=== PATIENT | female | born 1995 | race Caucasian/White ===

== ENCOUNTER 2017-03-23 16:19 | Outpatient (CLI) | payer MEDICAID ==
[~2017-03-23] VITALS: Ht 152.4 cm; Wt 79.1 kg
[2017-03-23 17:08] VITALS: Ht 152.4 cm; Wt 79.1 kg
[2017-03-23 17:09] VITALS: BP 110/69; PULSE 83; RESP 18
[2017-03-23] MEDS ORDERED: PREN-93 PO (17:20)
[2017-03-23 19:01] LABS: ADD SCAN DIFF NO
[2017-03-23 19:03] LABS: ADD UMIC YES; URINE BILIRUBIN (Dip) NEGATIVE (NEGATIVE); URINE BLOOD (Dip) NEGATIVE (NEGATIVE); URINE COLOR LT. YELLOW (YELLOW); URINE GLUCOSE (Dip) NEGATIVE (NEGATIVE); URINE KETONES (Dip) NEGATIVE (NEGATIVE); URINE LEUKOCYTE ESTERASE (Dip) TRACE (NEGATIVE); URINE NITRITE (Dip) NEGATIVE (NEGATIVE); URINE TOTAL PROTEIN (Dip) NEGATIVE (NEGATIVE); URINE UROBILINOGEN (Dip) 0.2 E.U./dL (0.1-1.0)
[2017-03-23 19:04] LABS: BASOPHILS % 0.3 % (0.0-2.0); EOSINOPHILS # 0.2 10^3/ul (0.0-0.5); EOSINOPHILS % 1.9 % (0.0-7.0); HEMATOCRIT 36.6 % (37.0-47.0); HEMOGLOBIN 12.2 g/dl (12.0-16.0); LYMPHOCYTES # 1.8 10^3/ul (0.8-2.9); LYMPHOCYTES % 18.9 % (15.0-51.0); MEAN CORPUSCULAR HEMOGLOBIN 26.3 pg (29.0-33.0); MEAN CORPUSCULAR HGB CONC 33.3 g/dl (32.0-37.0); MEAN PLATELET VOLUME 11.2 fl (7.4-10.4); MONOCYTES % 10.1 % (0.0-11.0); NEUTROPHIL # 6.5 10^3/ul (1.6-7.5); PLATELET COUNT 244 10^3/UL (140-415); RED BLOOD COUNT 4.63 10^6/ul (4.20-5.40); RED CELL DISTRIBUTION WIDTH 14.1 % (11.5-14.5); WHITE BLOOD COUNT 9.5 10^3/ul (4.8-10.8)
[2017-03-23 19:14] LABS: BACTERIA,URINE FEW; URINE RBCS NONE SEEN /HPF (0)
[2017-03-23 19:23] LABS: ALBUMIN 4.2 g/dl (3.3-4.9); ALBUMIN/GLOBULIN RATIO 1.35; BILIRUBIN,INDIRECT 0.2 mg/dl (0-1.1); BILIRUBIN,TOTAL 0.2 mg/dl (0.2-1.3); CALCIUM 9.4 mg/dl (8.4-10.2); CREATININE 0.5 mg/dl (0.44-1.00); POTASSIUM 3.9 mmol/L (3.5-5.1); TOTAL PROTEIN 7.3 g/dl (6.1-8.1); URIC ACID 3.7 mg/dl (3.1-7.9)
--- NOTE | 2017-03-23 23:18 | QN ---
Documentation Comment OB TRIAGE 21 y/o at 38+ weeks referred by Perinatology for prolonged monitoring. Patient with GDM. Patient denies any symptoms and reports good movement. Afebrile VSS Strip Category I PIH labs normal. D/C home. Follow up for antepartum testing on 03/26/2017. AURA KRAUSE MD Mar 23, 2017 23:18
--- NOTE | 2017-03-24 02:57 | TRIAGE ---
OB Triage Datetime Report Generated by CPN: 03/24/2017 02:57 Datetime: 03/23/2017 19:03 Labor Evaluation Frequency: 2-3 Monitor Mode: External Duration (sec)2399: 60-120 Pattern: Normal: <= 5 Contractions in 10 Minutes Resting Tone [place]: Relaxed Heart Rate FHR Baseline Rate: 140 Monitor Mode: External US Variability: Moderate 6-25 bpm Decelerations: None Pain Presence: None/Denies Datetime: 03/23/2017 18:39 Labor Evaluation Frequency: 2-4 Monitor Mode: External Duration (sec)2399: 60-120 Pattern: Normal: <= 5 Contractions in 10 Minutes Resting Tone [place]: Relaxed Heart Rate FHR Baseline Rate: 140 Monitor Mode: External US Variability: Moderate 6-25 bpm Accelerations: 15X15 Decelerations: None Category: Category I Pain Assessment Pain Scale: 1 Pain Presence: Intermittent Pain Type: Contraction Pain Location: Abdomen Pain Relief Measures: Comfort Measures Datetime: 03/23/2017 18:10 Pain Presence: None/Denies Vaginal Exam Dilatation (cms): 1.0 Effacement (%): 0 Station: -4 Exam By: GENARO Membrane Status: Intact Datetime: 03/23/2017 17:28 Labor Evaluation Frequency: UNABLE TO ASSESS. PT. DENIES FEELING UC'S Monitor Mode: External Pattern: Normal: <= 5 Contractions in 10 Minutes Resting Tone [place]: Relaxed Heart Rate FHR Baseline Rate: 140 Monitor Mode: External US Variability: Moderate 6-25 bpm Accelerations: 15X15 Decelerations: None Category: Category I Datetime: 03/23/2017 17:25 Contraction Comments: TOCO REPLACED Datetime: 03/23/2017 17:07 Assessment Type: Admission Assessment Maternal Assessment Level of Consciousness: Fully Conscious DTR's/Clonus: DTRs 2+; No Clonus Headache: Denies Blurred Vision: No Respiratory Effort: Unlabored; Regular Rhythm; Equal Expansion Breath Sounds, Left: Clear and Equal Breath Sounds, Right: Clear and Equal Nausea/Vomiting: Denies RUQ Epigastric Pain: Denies Lower Extremities Edema: None Degree: None Upper Extremities Edema: None Degree: None Facial Edema: None Fall Risk Assessment History of Falling: (0) No Secondary Diagnosis: (0) No Ambulatory Aid: (0) Bedrest/Nurse Assist IV Therapy: (0) No Gait: (0) Normal/Bedrest/Immobile Mental Status: (0) Oriented to Own Ability Fall Score: 0 Fall Risk Score Definition: No Risk: No action required Datetime: 03/23/2017 17:03 Time of Arrival: 03/23/2017 16:15 EGA: 38.4 Arrived By: Ambulatory Arrived From: Office Chief Complaint: PT. SENT FROM [facility] FOR EXTENDED EFM DUE TO 10X10 ACCELS IN [facility]. Movement: Decreased Contractions: Denies/Absent Rupture of Membranes: Denies Vaginal Bleeding: None Vaginal Discharge: Denies Recent Sexual Intercouse: Denies Abdominal Trauma: Not Applicable Patient Complaints: None Additional Patient Complaints: PT. HAS AIDM Time Provider Notified: 03/23/2017 17:57 Provider Notified: DELSHAD Initial Plan: TOCO/ US, CBC, CMP, URIC ACID, U/A Datetime: 03/23/2017 17:00 Stage of : OB Triage Datetime: 03/23/2017 16:57 Pain Presence: None/Denies Datetime: 03/23/2017 16:33 Stage of : OB Triage
== END 2017-03-23 21:20 | disposition home or self-care (01) ==
LOC: OBT 16:19 → L-D 16:21 → OBT 21:20
PROVIDERS: ATTEND Obstetrics & Gynecology
DX: O24.419 Gestational diabetes mellitus in pregnancy, unspecified control (principal); Z3A.38 38 weeks gestation of pregnancy
CPT/HCPCS: 80053; 81001; 84560; 85025; G0463

== ENCOUNTER 2017-03-26 16:09 | Inpatient (IN) | payer MEDICAID ==
[~2017-03-26] VITALS: Ht 152.4 cm; Wt 79.0 kg
[~2017-03-26 16:09] MED LIST: PREN-93 PO
[2017-03-26 16:34] VITALS: Ht 152.4 cm; Wt 79.0 kg
[2017-03-26 16:35] VITALS: BP 126/67; PULSE 103; RESP 20
[2017-03-26] MEDS: LACTATED RINGER'S 1,000 ML IV SCH ×2 (16:53→19:59)
[2017-03-26] MEDS ORDERED: IBUPROFEN 600 MG TAB PO PRN (17:00)
[2017-03-26] MEDS ORDERED: OXYTOCIN 30 UNITS/LR 500 ML IV SCH ×2 (17:00)
[2017-03-26] MEDS ORDERED: BUTORPHANOL 2 MG INJ IV PRN (17:00)
[2017-03-26] MEDS ORDERED: CARBOPROST 250 MCG INJ IM PRN (17:00)
[2017-03-26] MEDS ORDERED: LIDOCAINE 1% (MPF) 30 ML INJ INJ PRN (17:00)
[2017-03-26] MEDS ORDERED: ACETAMINOPHEN/CODEINE #3 TAB PO PRN (17:00)
[2017-03-26] MEDS ORDERED: OXYTOCIN 30 UNITS/LR 500 ML IV PRN (17:00)
[2017-03-26] MEDS ORDERED: METHYLERGONOVINE 0.2 MG INJ IM PRN (17:00)
[2017-03-26] MEDS ORDERED: MISOPROSTOL 200 MCG TAB PR PRN (17:00)
[2017-03-26 17:10] LABS: ADD SCAN DIFF NO
[2017-03-26 17:16] LABS: BASOPHILS % 0.4 % (0.0-2.0); EOSINOPHILS # 0.2 10^3/ul (0.0-0.5); EOSINOPHILS % 1.6 % (0.0-7.0); HEMATOCRIT 36.1 % (37.0-47.0); HEMOGLOBIN 12.2 g/dl (12.0-16.0); LYMPHOCYTES # 1.6 10^3/ul (0.8-2.9); LYMPHOCYTES % 16.1 % (15.0-51.0); MEAN CORPUSCULAR HEMOGLOBIN 26.8 pg (29.0-33.0); MEAN CORPUSCULAR HGB CONC 33.8 g/dl (32.0-37.0); MEAN CORPUSCULAR VOLUME 79.2 fl (82.0-101.0); MEAN PLATELET VOLUME 11.2 fl (7.4-10.4); MONOCYTES % 9.7 % (0.0-11.0); NEUTROPHIL # 6.9 10^3/ul (1.6-7.5); PLATELET COUNT 257 10^3/UL (140-415); RED BLOOD COUNT 4.56 10^6/ul (4.20-5.40); RED CELL DISTRIBUTION WIDTH 14.2 % (11.5-14.5); WHITE BLOOD COUNT 9.8 10^3/ul (4.8-10.8)
[2017-03-26 17:30] LABS: INR 0.86; PARTIAL THROMBOPLASTIN TIME 24.6 Sec (25.0-35.0); PROTIME 11.7 Sec (12.2-14.2); PT RATIO 0.9
[2017-03-26] MEDS ORDERED: AMPICILLIN 2 GM/NS (PMX) 100 ML IVPB ONE (18:00)
[2017-03-26] MEDS ORDERED: DEXTROSE 5%-LR 1,000 ML IV PRN (18:00)
[2017-03-26] MEDS: AMPICILLIN 1 GM/NS (PMX) 50 ML IVPB SCH (21:23)
--- NOTE | 2017-03-26 22:25 | NSTRPT ---
NST Information Datetime Report Generated by CPN: 03/26/2017 22:24 Datetime: 03/26/2017 13:51 NST Information EGA: 39.0 Test Number: 7 Time on Monitor: 03/26/2017 14:29 Time off Monitor: 03/26/2017 15:29 NST Duration (Min): 60 Reason for NST: Diabetes Mellitus; Other Reason for NST Other: A1DM Test and Monitor Explained: Monitor Explained; Test Explained; Verbalized Understanding Pulse: 81 Resp: 16 SBP: 108 DBP: 71 Test Evaluation NST Interventions: Reposition Patient; Acoustic Stimulation Patient States Movement: Present Contraction Frequency: q2-6, mild FHR Baseline : 140 Variability: Minimal - <=5bpm Accelerations: 10X10 Decelerations: Variable FHR Category: Category II NST Results: Questionable NST Results: Non-Reactive Comments: Pt to U/S, CEPHALIC, SAVANNA 12.8, FBS 93 Dr. Martinez reviewed strip and recommends pt go to Labor and Delivery now for induction of la bor. Dr. Liu called and informed of Dr. Martinez's recommendations. Dr. Liu agrees with plan. O rders received to send pt to L_D now for induction of labor. Report called to [facility] property administrator L_Kristie. POC explained to pt. Pt verbalizes understanding and denies questions. 1537-Pt to Labor and Delivery now. Electronically Signed By E-Signature: with User ID: [id number] Datetime: 03/23/2017 14:22 NST Information EGA: 38.4 Test Number: 6 Time on Monitor: 03/23/2017 14:51 Time off Monitor: 03/23/2017 15:55 NST Duration (Min): 64 Reason for NST: Diabetes Mellitus; Other Reason for NST Other: A1DM Test and Monitor Explained: Monitor Explained; Test Explained; Verbalized Understanding Pulse: 90 Resp: 17 SBP: 111 DBP: 68 Test Evaluation NST Interventions: PO Hydration; Food Given; Reposition Patient; Acoustic Stimulation Patient States Movement: Present Contraction Frequency: x1, denies FHR Baseline : 140 Variability: Moderate 6-25bpm Accelerations: 10X10 Decelerations: None FHR Category: Category I NST Results: Questionable Comments: To u/s, SAVANNA 17.3cm, cephalic FBS 93 Dr. Romero reviewed strip and recommends extended monitoring in OB Triage. Dr. Liu called and informed of Dr. Romero's recommendation. Alexa agrees with plan. Orders received to sen d pt to OB Triage now. POC discussed with pt, pt verbalizes understanding and denies questions. Foll ow-up NST/SAVANNA appointment given, discussed kick counts with pt. 1600-Pt to OB Triage now. Datetime: 03/19/2017 10:55 NST Information EGA: 38.0 Test Number: 5 Time on Monitor: 03/19/2017 11:10 Time off Monitor: 03/19/2017 11:43 NST Duration (Min): 33 Reason for NST: Diabetes Mellitus; Other Reason for NST Other: A1DM Test and Monitor Explained: Monitor Explained; Test Explained Pulse: 72 Resp: 16 SBP: 110 DBP: 66 Test Evaluation NST Interventions: Acoustic Stimulation Patient States Movement: Present Contraction Frequency: q2-5, pt. denies FHR Baseline : 145 Variability: Moderate 6-25bpm Accelerations: 15X15 Decelerations: None FHR Category: Category I FHR Category: Category I NST Results: Reactive Comments: To u/s, cephalic, savanna 17, fbs 72 1146-Pt home undelivered with labor precautions, kick count instructions reviewed, and foll ow up NST appt given. States understanding and denies further questions at this time. Datetime: 03/16/2017 13:45 NST Information EGA: 37.4 NST Duration (Min): 33 Comments: To u/s SAVANNA-16.6 ceph, pt did not check FBS, 1441-Pt Home undelivered with LABOR precauti ons. Follow Up NST appointment given. Kick Count instructions reviewed. Pt states understandin g. No further questions asked at this time. Datetime: 03/02/2017 14:25 NST Information EGA: 35.4 NST Duration (Min): 25 Datetime: 02/23/2017 14:25 NST Information EGA: 34.4 NST Duration (Min): 29 Datetime: 02/18/2017 14:30 NST Information EGA: 33.6 Datetime: 02/18/2017 14:25 NST Duration (Min): 49
[2017-03-27] MEDS: AMPICILLIN 1 GM/NS (PMX) 50 ML IVPB SCH ×6 (01:29→22:00)
[2017-03-27] MEDS: LACTATED RINGER'S 1,000 ML IV SCH ×2 (08:52→09:53)
[2017-03-27] MEDS ORDERED: OXYTOCIN 30 UNITS/LR 500 ML IV SCH (10:30)
[2017-03-27] MEDS ORDERED: ONDANSETRON 4 MG INJ IV PRN (10:30)
[2017-03-27] MEDS: LACTATED RINGER'S 1,000 ML IV PRN (10:30)
[2017-03-27] MEDS ORDERED: NALOXONE (0.4 MG/ML) INJ IV PRN (10:30)
[2017-03-27] MEDS ORDERED: EPHEDrine SULFATE 50 MG/5 ML SYG IV PRN (10:30)
--- NOTE | 2017-03-27 14:37 | HP ---
Date/Time of Note Date/Time of Note DATE: 03/27/17 TIME: 14:34 OB - History Hx of Present Chief Complaint: induction of labor Estimated Due Date: Apr 01, 2017 : 1 Para: 0 Spontaneous : 0 Therapeutic : 0 Care: Good Care Ultrasounds: Normal mid trimester US Obstetrical Complications: Gestational Diabetes Medical Complications: None Past Family/Social History * Past Medical, Surgical, Family and Obstetric Histories reviewed from chart. GBS Status: Positive OB Admission Exam Vital Signs Vital Signs Vital Signs Date Time Temp Pulse Resp B/P Pulse Ox O2 Delivery O2 Flow Rate FiO2 03/26/17 16:35 98.5 103 20 126/67 Room Air Physical Exam HEENT: WNL Heart: Rhythm Normal Lungs: Clear Abdomen: WNL Extremities: Normal Cervical Dilatation: 1cm Effacement: 50% Station: -1 Membranes: Intact Heart Rate: 120's Accelerations: Accelerations Present Decelerations: No Decelerations Varibility: Minimum Last 72 hourBlood Glucose Bedside Glucose - 72 Hours Test 03/26/17 21:18 03/27/17 01:27 03/27/17 04:31 03/27/17 06:29 Bedside Glucose 89mg/dL (70-220) 95mg/dL (70-220) 106mg/dL (70-220) 91mg/dL (70-220) Test 03/27/17 08:56 03/27/17 10:57 03/27/17 13:56 Bedside Glucose 96mg/dL (70-220) 87mg/dL (70-220) 86mg/dL (70-220) Last 72 hours Lab Results CBC & BMP 03/26/17 16:50 OB Assessment/Plan Reason for admission: induction of labor Plan: Induction Induction Method: per Misoprostol Protocol AURA KRAUSE MD Mar 27, 2017 14:37
[2017-03-27] MEDS: FENTAnyl 2MCG/ML-ROPIV 0.2% 100 ML BAG EPI SCH ×2 (15:18→18:24)
[2017-03-28] VITALS (10 sets, daily range): BP systolic 102–135; BP diastolic 57–89; PULSE 66–117; RESP 16–22
[2017-03-28] MEDS: AMPICILLIN 1 GM/NS (PMX) 50 ML IVPB SCH (01:10)
[2017-03-28] MEDS: FENTAnyl 2MCG/ML-ROPIV 0.2% 100 ML BAG EPI SCH (02:11)
[2017-03-28] MEDS: LACTATED RINGER'S 1,000 ML IV PRN (02:34)
--- NOTE | 2017-03-28 02:43 | QN ---
Documentation Comment Patient has been fully dilated and pushing but there has been no descent of head. OB ultrasound had revealed AC to be >90% which in the seting of GDM increases the possibility of shoulder dystocia. Patient is counseled about her options of management with continued labor or delivery by primary . Risks and benefits werer discussed with the patient who stated she understood and gave informed consent for delivery by primary . AURA KRAUSE MD Mar 28, 2017 02:43
[2017-03-28] MEDS ORDERED: morphine SULFATE/PF (10 MG/10 ML) INJ ONE (03:18)
[2017-03-28] MEDS ORDERED: CEFAZOLIN 1 GM INJ ONE (03:18)
[2017-03-28] MEDS ORDERED: PHENYLephrine (100 MCG/ML) 5ML SYG ONE (03:33)
[2017-03-28] MEDS ORDERED: OXYTOCIN 10 UNIT INJ ONE ×2 (03:33→03:49)
[2017-03-28] MEDS ORDERED: FENTAnyl 50 MCG/ML VIAL ONE (03:40)
[2017-03-28] MEDS ORDERED: MIDAZOLAM 1 MG/ML 2 ML INJ ONE (03:41)
[2017-03-28] MEDS ORDERED: KETAMINE 500 MG INJ ONE (03:46)
[2017-03-28] MEDS ORDERED: NALOXONE (0.4 MG/ML) INJ IV PRN (05:00)
[2017-03-28] MEDS ORDERED: morphine 2 MG INJ IV PRN (05:00)
[2017-03-28] MEDS ORDERED: ONDANSETRON 4 MG INJ IV PRN (05:00)
[2017-03-28] MEDS ORDERED: DIPHENHYDRAMINE 50 MG INJ IV PRN (05:00)
[2017-03-28] MEDS ORDERED: LIDOCAINE 2% (SDV) 5 ML INJ ONE (07:00)
[2017-03-28] MEDS: LACTATED RINGER'S 1,000 ML IV SCH ×2 (08:03→18:15)
[2017-03-28] MEDS ORDERED: MISOPROSTOL 200 MCG TAB PR PRN (08:30)
[2017-03-28] MEDS ORDERED: METHYLERGONOVINE 0.2 MG INJ IM PRN (08:30)
[2017-03-28] MEDS ORDERED: OXYCODONE/ACETAMINOPHEN (5/325) TAB PO PRN ×2 (08:30)
[2017-03-28] MEDS ORDERED: CARBOPROST 250 MCG INJ IM PRN (08:30)
[2017-03-28] MEDS ORDERED: OXYTOCIN 30 UNITS/LR 500 ML IV PRN (08:30)
[2017-03-28] MEDS ORDERED: LANOLIN 7 GM TUBE TOP PRN (08:30)
[2017-03-28] MEDS: SENNA/DOCUSATE NA (8.6MG/50MG) TAB PO SCH ×2 (09:00→21:31)
[2017-03-28] MEDS: KETOROLAC 30 MG INJ IV PRN ×2 (10:44→18:14)
[2017-03-28] MEDS: OXYTOCIN 30 UNITS/LR 500 ML IV SCH ×2 (11:07→14:57)
--- NOTE | 2017-03-28 18:57 | OPR ---
DATE OF OPERATION: 03/26/2017 PREOPERATIVE DIAGNOSES: at term with gestational diabetes and arrest of descent. POSTOPERATIVE DIAGNOSES: at term with gestational diabetes and arrest of descent. OPERATION PERFORMED: Primary low transverse section. SURGEON: Dain Farr MD POLLUTION CONTROL ENGINEER: Lissa Phillips MD ANESTHESIA: Epidural. ANESTHESIOLOGIST: Laron Long MD PROCEDURE: The patient was taken to the operating room and placed on the operating table. After ad equate epidural anesthesia was given, the area was prepared and draped in the usual sterile fashion. Epidural anesthesia was tested and was satisfactory. Using a scalpel, Pfannenstiel incision was m reji and carried to the fascia which was incised ____. Two Kochers were used to separate the fascia from the muscle. The muscle was dissected down to peritoneum. The peritoneum was bluntly entered. Using a scalpel, a small transverse incision was made in the uterus ____ ____ ____. Bandage scisso rs were inserted ____ ____ ____. After suctioning of fluid, the baby was handed off to ____. s were 8 and 9. The placenta was delivered without difficulty. Uterus was closed with ____. The p atient was ____. The peritoneal cavity was irrigated with warm saline and was closed with 2-0 Vicry l continuous. The fascia was closed with #1 Vicryl continuous in 2 segments. Subcutaneous tissue w as reapproximated with 2-0 plain. The skin was closed with ger. ESTIMATED BLOOD LOSS: 600 mL. COMPLICATIONS: None. COUNTS: All counts were correct. Dictated By: AURA MCCARTY/NTS Conf#: [id number] DID#: [id number]
[2017-03-29] MEDS: LACTATED RINGER'S 1,000 ML IV SCH (01:53)
[2017-03-29] MEDS: KETOROLAC 30 MG INJ IV PRN (03:41)
[2017-03-29 04:00] VITALS: BP 103/60; PULSE 72; RESP 19
[2017-03-29 07:31] LABS: ADD SCAN DIFF NO
[2017-03-29 07:34] LABS: BASOPHILS % 0.2 % (0.0-2.0); EOSINOPHILS # 0.1 10^3/ul (0.0-0.5); EOSINOPHILS % 1.2 % (0.0-7.0); HEMATOCRIT 23.2 % (37.0-47.0); HEMOGLOBIN 7.6 g/dl (12.0-16.0); LYMPHOCYTES # 2.2 10^3/ul (0.8-2.9); LYMPHOCYTES % 19.1 % (15.0-51.0); MEAN CORPUSCULAR HEMOGLOBIN 26.4 pg (29.0-33.0); MEAN CORPUSCULAR HGB CONC 32.8 g/dl (32.0-37.0); MEAN CORPUSCULAR VOLUME 80.6 fl (82.0-101.0); MEAN PLATELET VOLUME 10.8 fl (7.4-10.4); MONOCYTE # 1.2 10^3/ul (0.3-0.9); NEUTROPHIL # 8.1 10^3/ul (1.6-7.5); PLATELET COUNT 204 10^3/UL (140-415); RED BLOOD COUNT 2.88 10^6/ul (4.20-5.40); RED CELL DISTRIBUTION WIDTH 14.6 % (11.5-14.5); WHITE BLOOD COUNT 11.8 10^3/ul (4.8-10.8)
[2017-03-29 08:00] VITALS: BP 92/62; PULSE 86; RESP 18
[2017-03-29] MEDS: SENNA/DOCUSATE NA (8.6MG/50MG) TAB PO SCH ×2 (08:11→21:29)
--- NOTE | 2017-03-29 09:26 | QN ---
Documentation Comment No complaint Afebrile VSS Abdomen soft POD #1 Stable Ambulate Advance diet. AURA KRAUSE MD Mar 29, 2017 09:26
[2017-03-29] MEDS: MULTIVITAMINS THERAPEUTIC TAB PO SCH (10:55)
[2017-03-29] MEDS: FOLIC ACID 1 MG TAB PO SCH (10:56)
[2017-03-29] MEDS: FERROUS SULFATE (EC) 325 MG TAB PO SCH ×2 (12:56→21:29)
[2017-03-29 16:00] VITALS: BP 102/69; PULSE 88; RESP 18
[2017-03-29 20:15] VITALS: BP 104/51; PULSE 92; RESP 18
[2017-03-29] MEDS: IBUPROFEN 800 MG TAB PO SCH (21:29)
[2017-03-30 04:04] VITALS: BP 99/55; PULSE 62; RESP 18
[2017-03-30] MEDS: IBUPROFEN 800 MG TAB PO SCH ×3 (05:59→21:34)
[2017-03-30 08:15] LABS: ADD SCAN DIFF NO
[2017-03-30 08:18] LABS: BASOPHILS % 0.4 % (0.0-2.0); EOSINOPHILS # 0.3 10^3/ul (0.0-0.5); EOSINOPHILS % 2.7 % (0.0-7.0); HEMATOCRIT 25.1 % (37.0-47.0); HEMOGLOBIN 8.2 g/dl (12.0-16.0); LYMPHOCYTES # 2.6 10^3/ul (0.8-2.9); LYMPHOCYTES % 28.3 % (15.0-51.0); MEAN CORPUSCULAR HEMOGLOBIN 26.5 pg (29.0-33.0); MEAN CORPUSCULAR HGB CONC 32.7 g/dl (32.0-37.0); MEAN PLATELET VOLUME 10.4 fl (7.4-10.4); MONOCYTE # 0.8 10^3/ul (0.3-0.9); NEUTROPHIL # 5.4 10^3/ul (1.6-7.5); NEUTROPHILS % 58.8 % (39.0-77.0); PLATELET COUNT 290 10^3/UL (140-415); RED CELL DISTRIBUTION WIDTH 14.6 % (11.5-14.5); WHITE BLOOD COUNT 9.2 10^3/ul (4.8-10.8)
[2017-03-30 08:45] VITALS: BP 116/71; PULSE 103; RESP 20
[2017-03-30] MEDS: SENNA/DOCUSATE NA (8.6MG/50MG) TAB PO SCH ×2 (09:28→21:34)
[2017-03-30] MEDS: FOLIC ACID 1 MG TAB PO SCH (09:28)
[2017-03-30] MEDS: FERROUS SULFATE (EC) 325 MG TAB PO SCH ×3 (09:28→21:33)
[2017-03-30] MEDS: MULTIVITAMINS THERAPEUTIC TAB PO SCH (09:28)
--- NOTE | 2017-03-30 13:13 | NSTRPT ---
NST Information Datetime Report Generated by CPN: 03/30/2017 13:12 Datetime: 03/26/2017 13:51 NST Information EGA: 39.0 NST Duration (Min): 60 Datetime: 03/23/2017 14:22 NST Information EGA: 38.4 NST Duration (Min): 64 Electronically Signed By E-Signature: with User ID: [id number] Datetime: 03/19/2017 10:55 NST Information EGA: 38.0 NST Duration (Min): 33 Datetime: 03/16/2017 13:45 NST Information EGA: 37.4 NST Duration (Min): 33 Datetime: 03/02/2017 14:25 NST Information EGA: 35.4 NST Duration (Min): 25 Datetime: 02/23/2017 14:25 NST Information EGA: 34.4 NST Duration (Min): 29 Datetime: 02/18/2017 14:30 NST Information EGA: 33.6 Datetime: 02/18/2017 14:25 NST Duration (Min): 49
[2017-03-30 16:45] VITALS: BP 98/51; PULSE 76; RESP 18
--- NOTE | 2017-03-30 18:08 | QN ---
Documentation Comment No complaint Afebrile VSS Abdomen soft ND POD #2 Stable Continue with present care. AURA KRAUSE MD Mar 30, 2017 18:08
[2017-03-30 20:00] VITALS: BP 97/56; PULSE 79; RESP 19
[2017-03-31 04:00] VITALS: BP 116/70; PULSE 72; RESP 17
[2017-03-31] MEDS: IBUPROFEN 800 MG TAB PO SCH ×2 (06:09→14:31)
[2017-03-31 07:50] VITALS: BP 100/57; PULSE 69; RESP 16
[2017-03-31] MEDS ORDERED: DIPHTH/TET/ACEL PERTUSS (ADULT) 0.5 ML VIAL IM* ONE (09:00)
[2017-03-31] MEDS: MULTIVITAMINS THERAPEUTIC TAB PO SCH (09:14)
[2017-03-31] MEDS: SENNA/DOCUSATE NA (8.6MG/50MG) TAB PO SCH (09:14)
[2017-03-31] MEDS: FERROUS SULFATE (EC) 325 MG TAB PO SCH ×2 (09:14→12:05)
[2017-03-31] MEDS: FOLIC ACID 1 MG TAB PO SCH (09:14)
[2017-03-31 15:29] VITALS: BP 125/77; PULSE 77; RESP 16
--- NOTE | 2017-04-01 22:10 | DS ---
DATE OF ADMISSION: 03/26/2017 DATE OF DISCHARGE: 03/31/2017 ADMITTING DIAGNOSIS: at term with gestational diabetes. HISTORY: A 21-year-old female, 1, para 0 at time of admission, para 1 at time of discharge, with term was admitted for induction of labor with gestational diabetes. On 03/28/2017, after obtaining informed consent, the patient underwent a primary low transverse section du e to arrest of descent. The patient's operation was uncomplicated. Postoperatively, the patient wa s given a clear liquid diet. The patient was advanced to regular diet, which she tolerated well. T he patient is discharged on postop day #3 after having had adequate bladder and bowel function. CONDITION ON DISCHARGE: Stable. DISCHARGE INSTRUCTIONS: DIET: Regular. ACTIVITIES: Pelvic rest and no strenuous activities. MEDICATIONS: 1. Motrin as needed for pain. 2. Continue with vitamins and ferrous sulfate. Follow up in clinic in 1 week. FINAL DIAGNOSES: 1. Term , delivered by section. 2. Gestational diabetes. 3. Arrest of descent. 4. Mother with single liveborn. Dictated By: AURA MCCARTY/CLARIBEL Conf#: [id number] DID#: [id number]
== END 2017-03-31 17:25 | disposition home or self-care (01) | DRG 766 ==
LOC: L-D 16:09 → PP1 03-28 08:27 → EDSTATUS 04-02 15:32
PROVIDERS: ADMIT Obstetrics & Gynecology; ATTEND Obstetrics & Gynecology
PROC: 10D00Z1 Extraction of Products of Conception, Low, Open Approach (ICD-10-PCS; principal; 2017-03-26)
PROC: 3E00X4Z Introduction of Serum, Toxoid and Vaccine into Skin and Mucous Membranes, External Approach (ICD-10-PCS; 2017-03-31)
DX: O99.214 Obesity complicating childbirth (principal); E66.9 Obesity, unspecified; Z68.34 Body mass index [BMI] 34.0-34.9, adult; O24.429 Gestational diabetes mellitus in childbirth, unspecified control; Z23 Encounter for immunization; O62.1 Secondary uterine inertia; Z3A.39 39 weeks gestation of pregnancy; Z37.0 Single live birth
CPT/HCPCS: 62319; 82947; 82962; 85025; 85610; 85730; 86592; 86900; 86901; 87340; 90715; 94760; 99464; J0290; J0690; J1885; J2210; J2250; J2274; J2370; J2405; J2590; J3010; J7120

== ENCOUNTER 2019-03-14 10:13 | Inpatient (IN) | payer MEDICAID ==
[~2019-03-14] VITALS: Ht 152.4 cm; Wt 76.4 kg
[2019-03-14 10:35] VITALS: Ht 152.4 cm; Wt 76.4 kg
[2019-03-14 10:36] VITALS: BP 118/61; PULSE 90
[2019-03-14] MEDS ORDERED: LACTATED RINGER'S 1,000 ML IV SCH (10:38)
[2019-03-14] MEDS ORDERED: OXYTOCIN 30 UNITS/LR 500 ML IV PRN ×2 (11:00→13:00)
[2019-03-14] MEDS ORDERED: METHYLERGONOVINE 0.2 MG INJ IM PRN ×2 (11:00→13:00)
[2019-03-14] MEDS ORDERED: CARBOPROST 250 MCG INJ IM PRN ×2 (11:00→13:00)
[2019-03-14] MEDS ORDERED: CEFAZOLIN 2 GM/50 ML (PMX) 50 ML IVPB SCH (11:00)
[2019-03-14] MEDS ORDERED: MISOPROSTOL 200 MCG TAB PR PRN ×2 (11:00→13:00)
--- NOTE | 2019-03-14 11:29 | PREAC ---
Date/Time of Note Date/Time of Note DATE: 03/14/19 TIME: 11:28 Anesthesia Eval and Record Evaluation Time Pre-Procedure Interview DATE: 03/14/19 TIME: 11:28 Age 23 Sex female NPO: 8 hrs Preoperative diagnosis Planned procedure c/s Past Medical History Past Medical History: Includes GI: Obesity Surgery & Anesthesia Issues No known issue Meds Anticoagulation: No Beta Glory within 24 hr: No Reason Beta Glory not given: Pt. not on B-Glory Reported Medications Vit No.124/Iron/FA ( Vitamin Tablet) 1 Each Tablet, 1 EACH PO, TAB 03/23/17 Current Medications Lactated Ringer's 1,000 ml @ 125 mls/hr Q8H IV Last administered on 03/14/19at 10:54; Admin Dose 125 MLS/HR; Start 03/14/19 at 10:38 Cefazolin Sodium/ Dextrose 50 ml @ 100 mls/hr ONCE IVPB ; Start 03/14/19 at 11:00 Oxytocin/Lactated Ringer's 500 ml @ 0 mls/hr ONCE PRN IV .VAGINAL BLEEDING; Start 03/14/19 at 11:00 Methylergonovine Maleate (Methergine) 0.2 mg ONCE PRN IM .VAGINAL BLEEDING; Start 03/14/19 at 11:00 Carboprost Tromethamine (Hemabate) 250 mcg ONCE PRN IM .VAGINAL BLEEDING; Start 03/14/19 at 11:00 Misoprostol (Cytotec) 1,[address] .VAGINAL BLEEDING; Start 03/14/19 at 11:00 Meds reviewed: Yes Allergies Coded Allergies: No Known Allergy (Unverified , 03/23/17) Allergies Reviewed: Yes Labs/Studies Labs Reviewed: Reviewed by anesthesiologist Result Diagram: 03/14/19 1043 Laboratory Tests 03/14/19 10:43 Blood Bank Test 03/14/19 10:43 Blood Type B POSITIVE Rh Immune Globulin Candidate NO test: Positive Pre-procedure Exam Last vitals Vital Signs Date Temp Pulse Resp B/P (MAP) Pulse Ox O2 O2 Flow FiO2 Time Delivery Rate 03/14/19 97.9 90 118/61 10:36 (80) Airway: Adequate mouth opening, Adequate thyromental dist Mallampati: Mallampati II Teeth: Normal Lung: Normal Heart: Normal ASA Physical Status ASA physical status: 2 Emergency: None Planned Anesthetic Neuraxial: Epidural Planned Pain Management Epidural Pre-operative Attestations Prior to commencing anesthesia and surgery, the patient was re-evaluated, there was verification of: *The patient's identity *The results of appropriate recent lab work and preoperative vital signs *The above evaluation not changing prior to induction *Anesthetic plan, risk benefits, alternative and complications discussed with patient/family; questions answered; patient/family understands, accepts and wishes to proceed. LYRIC FORD Mar 14, 2019 11:29
[2019-03-14] MEDS ORDERED: OXYTOCIN 30 UNITS/LR 500 ML BAG IV ONE (12:00)
[2019-03-14] MEDS ORDERED: EPHEDrine 25 MG/5 ML SYG ONE (12:00)
[2019-03-14] MEDS ORDERED: CEFAZOLIN 1 GM INJ ONE (12:00)
[2019-03-14] MEDS ORDERED: PHENYLephrine (100 MCG/ML) 10ML SYG ONE (12:00)
[2019-03-14] MEDS ORDERED: morphine SULFATE/PF (10 MG/10 ML) INJ ONE (12:05)
[2019-03-14] MEDS ORDERED: OXYTOCIN 30 UNITS/LR 500 ML IV SCH (12:48)
--- NOTE | 2019-03-14 12:48 | OPPN ---
Date/Time of Note Date/Time of Note DATE: 03/14/19 TIME: 12:45 Operative Report Planned Procedure Procedure date Mar 14, 2019 Procedure(s) repeat low transverse CD Performed by see signature line Information Security Director: EPSERANZA CORTEZ M.D. 2nd Information Security Director none Anesthesiologist: LYRIC FORD Pre-procedure diagnosis iup at 38 wks ga, previous CD X 1. in labor desire elective repeat CD, [id number] Anesthesia Type: Ckggx9b spinal Post-Procedure Post-procedure diagnosis same Findings a viable male 8/9 weight 9lb 0oz, bilateral footling breech presentation. normal uterus tubes and ovaries. Estimated Blood Loss: 500 - 600 mls (500) Specimen(s) none Grafts/Implant(s) none Complication(s) none RE WADSWORTH MD Mar 14, 2019 12:48
[2019-03-14] MEDS ORDERED: OXYCODONE/ACETAMINOPHEN (5/325) TAB PO PRN (13:00)
[2019-03-14] MEDS ORDERED: LANOLIN HPA 1 PKT TOP PRN (13:00)
[2019-03-14] MEDS ORDERED: NACL 0.9% 3 ML SYG IV SCH (13:00)
[2019-03-14] MEDS: CEFAZOLIN 2 GM/50 ML (PMX) 50 ML IVPB SCH ×2 (13:00→21:49)
--- NOTE | 2019-03-14 13:22 | PAC ---
Date/Time of Note Date/Time of Note DATE: 03/14/19 TIME: 13:21 Post-Anesthesia Notes Post-Anesthesia Note Last documented vital signs Vital Signs Date Temp Pulse Resp B/P (MAP) Pulse Ox O2 O2 Flow FiO2 Time Delivery Rate 03/14/19 97.9 90 118/61 10:36 (80) Activity: WNL Respiratory function: WNL Cardiovascular function: WNL Mental status: Baseline Pain reasonably controlled: Yes Hydration appropriate: Yes Nausea/Vomiting absent: Yes LYRIC FORD Mar 14, 2019 13:22
--- NOTE | 2019-03-14 13:56 | PREOPHP ---
DATE OF ADMISSION: 03/14/2019 HISTORY OF PRESENT ILLNESS: Ms. Nella Ritchie is a 23-year-old, 2, para 1, EDC 019, intrauterine at 38 weeks gestational age, presented to triage complaining of contracti ons. She has a significant history 1 previous and currently in labor and desires elective repeat delivery, declined . Her care took place at [facility]. PAST MEDICAL HISTORY: None. MEDICATIONS: vitamins. PAST SURGICAL HISTORY: x1 previous section. OBSTETRIC HISTORY: x1 previous section. GYNECOLOGIC HISTORY: 12, regular 3 to 4 days. Denies any sexually transmitted infections. Sexually active with 1 partner. SOCIAL HISTORY: Denies any smoking, drugs or alcohol. FAMILY HISTORY: None. REVIEW OF SYSTEMS: All within normal except history of present illness. PHYSICAL EXAMINATION: HEENT: Within normal. LUNGS: CTA bilateral. CARDIOVASCULAR: S1, S2. Regular rate, rhythm. ABDOMEN: Gravid, nontender. Negative CVA bilateral. EXTREMITIES: Negative edema. No calf tenderness. PELVIC: Vaginal exam: 2 cm, 50%, -2 station. heart tracing category 1. Nitro: Regular contr actions. ASSESSMENT: 1. Intrauterine at 38 weeks gestational age in labor. 2. Previous section x1. 3. Desires elective repeat delivery. 4. Declined vaginal after . PLAN: Consent for repeat delivery. Risks, benefits and alternatives were explained. All q uestions were answered. Dictated By: RE LUGO/CLARIBEL Conf#: [id number] DID#: [id number]
[2019-03-14] MEDS: OXYTOCIN 30 UNITS/LR 500 ML IV SCH ×3 (13:59→21:30)
[2019-03-14] MEDS ORDERED: KETOROLAC 30 MG INJ IV PRN (14:30)
[2019-03-14] MEDS ORDERED: ONDANSETRON 4 MG INJ IV PRN ×2 (14:30)
[2019-03-14] MEDS ORDERED: METOCLOPRAMIDE 10 MG INJ IV PRN (14:30)
[2019-03-14] MEDS ORDERED: ALBUTEROL 0.083% (NEB) 2.5 MG/3 ML AMP HHN PRN (14:30)
[2019-03-14] MEDS ORDERED: NALOXONE (0.4 MG/ML) INJ IV PRN (14:30)
[2019-03-14] MEDS ORDERED: HYDROmorphONE 1 MG/5 ML IV SYRINGE IV PRN ×2 (14:30)
[2019-03-14] MEDS ORDERED: HYDROmorphONE 0.5 MG/0.5 ML SYG IV PRN ×2 (14:30)
[2019-03-14] MEDS ORDERED: FENTAnyl 50 MCG/ML VIAL IV PRN ×3 (14:30)
[2019-03-14] MEDS ORDERED: DIPHENHYDRAMINE 50 MG INJ IV PRN ×2 (14:30)
[2019-03-14 16:20] VITALS: BP 111/65; PULSE 77; RESP 19
[2019-03-14 17:20] VITALS: BP 99/58; PULSE 68; RESP 19
[2019-03-14 20:00] VITALS: BP 98/54; PULSE 86; RESP 19
[2019-03-14] MEDS: SENNA/DOCUSATE NA (8.6MG/50MG) TAB PO SCH (21:49)
--- NOTE | 2019-03-14 21:58 | OPR ---
DATE OF OPERATION: 03/14/2019 PRIMARY DIAGNOSES: Intrauterine at 38 weeks gestational age, previous delivery x1 , in labor, desires elective delivery, declined vaginal after . POSTOPERATIVE DIAGNOSES: Intrauterine at 38 weeks gestational age, previous mildred rosario x1, in labor, desires elective delivery, declined vaginal after . PROCEDURE: Primary low transverse delivery. SURGEON: Rafa Wadsworth MD CUSTOMER SOLUTIONS TEAMMATE: Esperanza Cortez MD ANESTHESIA: Spinal. COMPLICATIONS: None. ESTIMATED BLOOD LOSS: 500 mL. FINDINGS: A viable male, 8 and 9 respectively at 1 and 5 minutes, weight 9 pounds 0 ounces. F etus in bilateral footling breech presentation. Normal uterus, tubes, and ovaries. DESCRIPTION OF PROCEDURE: After explaining the risks, benefits, and alternatives to the patient, con sent signed in chart, the patient was taken to the operating room where spinal anesthesia was found t o be adequate. She was then prepared and draped in normal sterile fashion in dorsal supine position with a leftward tilt. A Pfannenstiel skin incision was then made with a scalpel and carried to the u nderlying layer of fascia. The fascia was incised in the midline, and incision was extended laterall y with Lester scissors. The superior aspect of the fascial incision was grasped with curved clamps, el evated, and the underlying rectus muscles were dissected off bluntly. Attention was then turned to t he inferior aspect of incision, which in similar fashion was grasped and tented up with curved clamps and the rectus muscles dissected off bluntly. The rectus muscle was in midline, peritoneu m identified, tented up, and sharply with Metzenbaum scissors. This incision was extended superiorly and inferiorly with good visualization of bladder. At this point, the bladder blade was inserted, an d the lower uterine segment was incised in transverse fashion with the scalpel. The uterine incision was extended laterally. The bladder blade was removed, and the 's feet were delivered to the level of the scapula. The right arm was flipped across the chest and delivered. Similarly, the left arm was flipped across the chest and delivered. The head was delivered atraumatically. The nose an d mouth were suctioned. Cord was clamped and cut. The infant was handed off to awaiting pediatricia n. The placenta was then removed. The uterus was cleared of all clots and debris. The uterine inci leonid was repaired with 1-0 chromic in a running locked fashion. A second layer of same suture was us ed for imbrication obtaining excellent hemostasis. The uterus was returned to the abdomen. The gutt ers were cleared of all clots. The peritoneum and rectus abdominis muscles were reapproximated with 2-0 Vicryl in an interrupted fashion. The fascia was reapproximated with 0 Vicryl in a running fashi on. The subcutaneous tissue was reapproximated with 2-0 plain gut in a running fashion. The skin wa s closed with absorbable ger. The patient tolerated procedure well. Sponge, lap, and needle cou nts were correct. The patient was taken to recovery room in stable condition. Dictated By: RAFA WADSWORTH MD ME/NTS Conf#: [id number] DID#: [id number] CC: ESPERANZA CORTEZ MD;*End*
[2019-03-15] VITALS: BP 100/58; PULSE 74; RESP 18
[2019-03-15] MEDS: OXYTOCIN 30 UNITS/LR 500 ML IV SCH ×4 (01:30→13:30)
[2019-03-15 03:57] VITALS: BP 92/54; PULSE 78; RESP 18
[2019-03-15] MEDS: CEFAZOLIN 2 GM/50 ML (PMX) 50 ML IVPB SCH (04:38)
[2019-03-15] MEDS: KETOROLAC 30 MG INJ IV PRN ×2 (04:39→13:03)
[2019-03-15 08:00] VITALS: BP 93/47; PULSE 76; RESP 16
[2019-03-15] MEDS: SENNA/DOCUSATE NA (8.6MG/50MG) TAB PO SCH ×2 (10:18→21:49)
[2019-03-15] MEDS ORDERED: CEFAZOLIN 2 GM/50 ML (PMX) 50 ML IVPB SCH (13:30)
[2019-03-15 16:55] VITALS: BP 90/55; PULSE 84; RESP 18
--- NOTE | 2019-03-15 18:59 | QN ---
Documentation Comment progress note pod 1 patient was seen and evaluated no complaints vs stable afebrile ab dressing clean/dry no distention, nt extremity no edema no calf tenderness a/ sp cd pod 1 stable afebrile p/ iron supplement encourage ambulation RE WADSWORTH MD Mar 15, 2019 18:59
[2019-03-15] MEDS: OXYCODONE/ACETAMINOPHEN (5/325) TAB PO PRN (19:00)
[2019-03-15] MEDS: IBUPROFEN 600 MG TAB PO SCH (19:00)
[2019-03-15 20:45] VITALS: BP 91/48; PULSE 97; RESP 18
[2019-03-15] MEDS: FERROUS SULFATE (EC) 325 MG TAB PO SCH (21:50)
[2019-03-16] MEDS: IBUPROFEN 600 MG TAB PO SCH ×5 (00:03→23:32)
[2019-03-16 04:00] VITALS: BP 96/56; PULSE 91; RESP 17
[2019-03-16 08:00] VITALS: BP 94/52; PULSE 84; RESP 18
[2019-03-16] MEDS: SENNA/DOCUSATE NA (8.6MG/50MG) TAB PO SCH ×2 (11:03→22:09)
[2019-03-16] MEDS: FERROUS SULFATE (EC) 325 MG TAB PO SCH ×2 (11:04→22:09)
[2019-03-16 15:35] VITALS: BP 110/57; PULSE 93; RESP 18
[2019-03-16] MEDS: OXYCODONE/ACETAMINOPHEN (5/325) TAB PO PRN (16:20)
--- NOTE | 2019-03-16 19:45 | QN ---
Documentation Comment progress note pod 2 patient was seen and evaluated no complaints vs stable afebrile ab c/d/i no distention, nt extremity no edema no calf tenderness a/ sp cd pod 2 stable afebrile p/discharge home tomorrow RE WADSWORTH MD Mar 16, 2019 19:45
--- NOTE | 2019-03-16 19:46 | PD.PPDC ---
GROCERY DEPARTMENT MANAGER Discharge Instruction Condition [id number] Patient Condition: Pffak2k Good Diet Unybv1Dd Diet: Xdawy6w Resume Regular Diet Activity/Restrictions Hactd1Oq Activity: Zixdy7m Normal Activity May Shower Rsgpn8Ly Restrictions: Nvvfe4g No Exercising No Lifting No Driving No Sexual Activity Nothing in the Vagina No [place] No Tampons, douche Follow-up Follow-up with Physician: 2, Week/Weeks Return to clinic for Ibhiq0Qk VENDING SUPERVISOR Instructions: Tfsgy7k Fever greater than 101 Chills Worsening abdominal pain Excessive Vaginal Bleeding More than 2 pads per hour Unable to tolerate diet Mgdds2Dm OB Instructions: Cflkj4q Breast Tenderness Depression Blurried Vision Headache Icitc1Af Surgical Instructions: Dzxqk3r Incisional Drainage Incisional Redness RE WADSWORTH MD Mar 16, 2019 19:46
[2019-03-16 20:30] VITALS: BP 113/69; PULSE 91; RESP 18
--- NOTE | 2019-03-17 01:14 | DS ---
DATE OF ADMISSION: 03/14/2019 DATE OF DISCHARGE: 03/16/2019 PRIMARY DIAGNOSIS: Intrauterine at 38 weeks' gestational age, previous section x1 , in labor, desires elective delivery, declined vaginal after . PROCEDURE: Repeat low transverse delivery. CONDITION ON DISCHARGE: Stable. ACTIVITY: None per vagina, no lifting x6 weeks. DIET: Regular. MEDICATIONS ON DISCHARGE: 1. Motrin. 2. Iron. 3. Colace. DISCHARGE SUMMARY: Ms. Nella Ritchie underwent a repeat delivery on 03/14/2019. She had a viable male, 8 and 9 respectively at 1 and 5 minutes, weight 9 pounds 0 ounces. Her fetu s was in footling breech presentation. She had an uneventful postop day one and two. She was discha rged home on postop day 3. Her incision is clean, dry and intact. She is ambulating, tolerating t, positive flatulence, positive bowel movement. She will follow up in the clinic in two weeks for p ostpartum/postop care. Dictated By: RE LUGO/CLARIBEL Conf#: [id number] DID#: [id number]
[2019-03-17] MEDS: IBUPROFEN 600 MG TAB PO SCH ×3 (05:45→18:09)
[2019-03-17 05:57] VITALS: BP 103/61; PULSE 79; RESP 18
[2019-03-17 07:30] VITALS: BP 104/71; PULSE 85; RESP 18
[2019-03-17] MEDS: FERROUS SULFATE (EC) 325 MG TAB PO SCH ×2 (10:29→21:54)
[2019-03-17] MEDS: SENNA/DOCUSATE NA (8.6MG/50MG) TAB PO SCH ×2 (10:29→21:54)
[2019-03-17 16:00] VITALS: BP 115/61; PULSE 78; RESP 16
[2019-03-17 19:45] VITALS: BP 114/71; PULSE 87; RESP 17
[2019-03-18] MEDS: IBUPROFEN 600 MG TAB PO SCH ×3 (00:29→11:39)
[2019-03-18 04:05] VITALS: BP 96/62; PULSE 73; RESP 17
[2019-03-18 08:36] VITALS: BP 96/54; PULSE 86; RESP 18
[2019-03-18] MEDS: SENNA/DOCUSATE NA (8.6MG/50MG) TAB PO SCH (08:50)
[2019-03-18] MEDS: FERROUS SULFATE (EC) 325 MG TAB PO SCH (08:50)
--- NOTE | 2019-03-19 16:34 | DELSUM ---
Delivery Summary A-C Datetime Report Generated by CPN: 03/19/2019 16:34 DELIVERY PERSONNEL Aerial Photographer: Hirenondo, Jennifer MATERNAL INFORMATION Delivery Anesthesia: Spinal Medications in Delivery: see anesthesia notes. Delivery QBL (ml): 500 Placenta Cultured: No Maternal Complications: None LABOR SUMMARY EDC: 03/28/2019 00:00 No. Babies in Womb: 1 Attempted: No Labor Anesthesia: None LABOR INFORMATION Reason for Induction: Not Applicable Oxytocin: N/A Group B Beta Strep: Negative Antibiotics # of Doses: 1 Antibiotics Time of Last Dose: 03/14/2019 12:16 Steroids Given: None Reason Steroids Not Administered: Not Applicable MEMBRANES Membranes Rupture Method: Artificial Rupture of Membranes: 03/14/2019 12:24 Length of Rupture (hr): 0.02 Amniotic Fluid Color: Clear Amniotic Fluid Amount: Moderate Amniotic Fluid Odor: None STAGES OF LABOR Stage 3 hr: 0 Stage 3 min: 2 CSECTION DELIVERY Primary Indication: Repeat Elective Secondary Indication: N/A CSection Urgency: Non Elective CSection Incidence: Repeat Labor: Labor Elective: Nonelective CSection Incision: Lower Uterine Transverse BABY A INFORMATION Delivery Date/Time: 03/14/2019 12:25 Method of Delivery: Born in Route : No : N/A Forceps: N/A Vacuum Extraction: N/A Shoulder Dystocia : N/A SHOULDER DYSTOCIA BABY A Infant Delivery Date/Time: 03/14/2019 12:25 PRESENTATION/POSITION BABY A Presentation: Breech Cephalic Presentation: N/A Breech Presentation: Double Footling PLACENTA INFORMATION BABY A Placenta Delivery Time : 03/14/2019 12:27 Placenta Method of Delivery: Manual Removal Placenta Status: Delivered SCORES BABY A Heart Rate 1 min: >100 bpm Resp Effort 1 min: Good Cry Reflex Irritability 1 min: Cough/Sneeze/Pulls Away Muscle Tone 1 min: Active Motion Color 1 min: Blue/Pale Resuscitation Effort 1 min: Tactile Stimulation SCORE 1 MIN: 8 Heart Rate 5 min: >100 bpm Resp Effort 5 min: Good Cry Reflex Irritability 5 min: Cough/Sneeze/Pulls Away Muscle Tone 5 min: Active Motion Color 5 min: Body [place], Extremit Blue Resuscitation Effort 5 min: Tactile Stimulation SCORE 5 MIN: 9 INFORMATION BABY A Gestational Age at Delivery: 38.0 Gestational Status: Early Term- 37- 38.6 Weeks Infant Outcome : Liveborn Infant Condition : Stable Sex: Male IDENTIFICATION/MEDS BABY A ID Band Number: [id number] ID Band Location: Right Leg; Left Arm Sensor Applied: Yes Sensor Number: [id number] Sensor Location : Cord Clamp Vitamin K Given : Not Given Erythromycin Given: Not Given WEIGHT/LENGTH BABY A Infant Birthweight (gm): 4085 Infant Weight (lb): 9 Infant Weight (oz): 0 Infant Length (in): 21.00 Length (cm): 53.34 CORD INFORMATION BABY A No. Cord Vessels: 3 Nuchal Cord : N/A Cord Blood Taken: No Suction: Mouth; Nose ASSESSMENT BABY A Complications: None Physical Findings at Delivery: Within Normal Limits Infant Respirations: Appears Normal Ironer Sock/ALS Called : No Care By: Autumn Hancock Transferred To: Remains with Mother
--- NOTE | 2019-03-21 11:31 | CONS ---
Consultation Date/Type/Reason Admit Date/Time Mar 14, 2019 at 10:30 Initial Consult Date Type of Consult anesthesia Reason for Consultation follow up Date/Time of Note DATE: 03/21/19 TIME: 11:30 24 HR Interval Summary Free Text/Dictation Pt was seen and examined at bedside on 03/15/19 was POD#1 s/p c/s. Pt received spinal duramorph for post-op pain control. She had no N/V/BORDEN. Exam/Review of Systems Exam Vitals Vital Signs Date Temp Pulse Resp B/P (MAP) Pulse Ox O2 O2 Flow FiO2 Time Delivery Rate 03/18/19 98.1 86 18 96/54 (68) 08:36 03/18/19 Room Air 04:05 Results Results 24hrs Laboratory Tests Test 03/20/19 15:38 Lab Scanned Report REFERENCE LAB LYRIC FORD Mar 21, 2019 11:31
== END 2019-03-18 16:34 | disposition home or self-care (01) | DRG 788 ==
LOC: L-D 10:13 → OBT 10:13 → L-D 10:30 → PP1 15:54
PROVIDERS: ADMIT Obstetrics & Gynecology; ATTEND Obstetrics & Gynecology
PROC: 10D00Z1 Extraction of Products of Conception, Low, Open Approach (ICD-10-PCS; principal; 2019-03-14 11:30)
DX: O34.211 Maternal care for low transverse scar from previous cesarean delivery (principal); O99.214 Obesity complicating childbirth; E66.9 Obesity, unspecified; G89.18 Other acute postprocedural pain; Z3A.38 38 weeks gestation of pregnancy; Z37.0 Single live birth
CPT/HCPCS: 85025; 85610; 85730; 86592; 86850; 86900; 86901; G0463; J0690; J1885; J2210; J2274; J2370; J2590; J7120